=== PATIENT | male | born 1975 | race Caucasian/White ===

== ENCOUNTER 2024-08-22 02:48 | Emergency (ER) | payer SELFPAY ==
[~2024-08-22] VITALS: Ht 188 cm; Wt 70.4 kg
[2024-08-22 02:53] VITALS: O2SAT 98
[2024-08-22 02:54] VITALS: PULSE 95; O2SAT 99
[2024-08-22 02:58] VITALS: BP 134/94; RESP 16; TEMP 36.7
[2024-08-22 03:26] LABS: BASOPHILS % 0.5 % (0.0-2.0); HEMATOCRIT. 31.6 % (42.0-52.0); HEMOGLOBIN. 9.8 g/dL (14.0-18.0); LYMPHOCYTES % 18.7 % (20.0-50.0); MEAN CORPUSCULAR HEMOGLOBIN 23.7 pg (28.0-32.0); MEAN CORPUSCULAR VOLUME 76.5 fL (80.0-94.0); MEAN PLATELET VOLUME 6.6 fl (7.4-10.4); MONOCYTES % 8.9 % (2.0-8.0); NEUTROPHILS % 70.9 % (40.0-76.0); PLATELET 251 x1000/uL (130-400); RED BLOOD CELL COUNT 4.13 mill/uL (4.7-6.1); WHITE BLOOD COUNT 7.2 x1000/uL (4.5-11.0)
[2024-08-22 03:34] LABS: CHLORIDE 104 mEq/L (98-107); POTASSIUM 4.2 mEq/L (3.5-5.1); SODIUM 142 mEq/L (136-145)
[2024-08-22 03:35] LABS: CARBON DIOXIDE 29 mEq/L (21-32)
[2024-08-22 03:40] LABS: CREATININE 0.7 mg/dL (0.6-1.3); GLUCOSE 104 mg/dL (70-105); UREA NITROGEN BLOOD 10 mg/dL (9-23)
[2024-08-22 03:45] LABS: DIFFERENTIAL COMMENT 1
[2024-08-22 03:48] LABS: ADD RBC MORPHOLOGY YES
[2024-08-22 04:21] LABS: TROPONIN I HIGH SENSITIVITY < 4 ng/L (3.0-53)
[2024-08-22] MEDS ORDERED: NAPR-1176 MT (04:25)
[2024-08-22 04:30] VITALS: TEMP 98.1
[2024-08-22] MEDS: ACETAMINOPHEN 325MG TABLET PO ONE (04:30)
[2024-08-22 06:22] LABS: HYPOCHROMASIA 1+; MICROCYTOSIS 1+; PLATELET ESTIMATE NORMAL
== END 2024-08-22 04:30 | disposition home or self-care (01) ==
LOC: ER 02:48
DX: R07.9 Chest pain, unspecified (principal); D64.9 Anemia, unspecified; E11.9 Type 2 diabetes mellitus without complications; K21.9 Gastro-esophageal reflux disease without esophagitis; F32.A Depression, unspecified
CPT/HCPCS: 36415; 71045; 80048; 84484; 85025; 93005; 99285